=== PATIENT | male | born 1950 | race Caucasian/White ===

== ENCOUNTER 2016-11-08 10:01 | Day surgery (SDC) | payer MEDICARE, OTHER ==
[~2016-11-08 10:01] MED LIST: Lactated Ringers 1,000 ML IV SCH
[2016-11-08] MEDS ORDERED: fentaNYL 100 MCG/2 ML SDV ONE (12:22)
[2016-11-08] MEDS ORDERED: Propofol 200 MG/20 ML SDV ONE ×2 (12:22→12:58)
[2016-11-08 13:36] VITALS: BP 108/67
--- NOTE | 2016-11-08 14:42 | OR ---
PREOPERATIVE DIAGNOSIS: Family history of colon cancer-mother. POSTOPERATIVE DIAGNOSIS: Two mild diverticulosis. Otherwise normal exam. PROCEDURE PROPOSED: Total flexible colonoscopy. PROCEDURE DONE: Total flexible colonoscopy. INDICATION: The patient is a 66-year-old gentleman who comes in for his first colonoscopic exam. He does state that his mother had colon cancer in her 60s. He denies any symptomatology. TECHNIQUE: The patient was brought to the endoscopy suite, placed in left lateral decubitus position. He was sedated with propofol per BILL RECAPITULATION CLERK. The flexible video colonoscope was then passed transanally and under visualization advanced to the cecum. Examination revealed a normal ascending, transverse, and descending colon. The sigmoid colon revealed a very mild diverticulosis and the rectal mucosa was normal. There was no evidence of any polyps, colitis, or other abnormalities. The scope was then withdrawn. The patient tolerated the procedure well. IMPRESSION: 1. Mild sigmoid diverticulosis. Otherwise normal exam. 2. Family history of colon cancer-mother. PLAN: I feel he is possibly relative having colon cancer. He should consider having colonoscopies every 5 years hereafter. SCM: 11/08/2016 13:15:21 MODL: 11/08/2016 14:36:42 /[id number]
== END 2016-11-08 14:36 | disposition home or self-care (01) ==
LOC: VM.SDS 10:01
PROVIDERS: ATTEND Surgery
DX: Z12.11 Encounter for screening for malignant neoplasm of colon (principal); K57.30 Diverticulosis of large intestine without perforation or abscess without bleeding; I10 Essential (primary) hypertension; E66.9 Obesity, unspecified; Z79.82 Long term (current) use of aspirin; Z79.899 Other long term (current) drug therapy; Z98.890 Other specified postprocedural states; Z87.891 Personal history of nicotine dependence
CPT/HCPCS: G0105; J2704; J3010; J7120

== ENCOUNTER 2022-07-07 10:53 | Day surgery (SDC) | payer MEDICARE, BC ==
[2022-07-07] MEDS ORDERED: Propofol 200 MG/20 ML SDV ONE ×3 (11:25→12:41)
[2022-07-07] MEDS ORDERED: fentaNYL 100 MCG/2 ML SDV ONE (11:26)
[2022-07-07 13:32] VITALS: BP 113/56; PULSE 58
== END 2022-07-07 14:38 | disposition home or self-care (01) ==
LOC: VM.SDS 10:53
PROVIDERS: ATTEND Family Medicine
DX: Z12.11 Encounter for screening for malignant neoplasm of colon (principal); K57.30 Diverticulosis of large intestine without perforation or abscess without bleeding; Q43.8 Other specified congenital malformations of intestine; I10 Essential (primary) hypertension; E78.00 Pure hypercholesterolemia, unspecified; M65.4 Radial styloid tenosynovitis [de Quervain]; E66.9 Obesity, unspecified; Z80.0 Family history of malignant neoplasm of digestive organs; Z98.890 Other specified postprocedural states; Z68.35 Body mass index [BMI] 35.0-35.9, adult; Z79.899 Other long term (current) drug therapy; Z79.82 Long term (current) use of aspirin
CPT/HCPCS: 00812; J2704; J3010; J7120